=== PATIENT | female | born 1985 | race African-American/Black ===

== ENCOUNTER 2018-05-03 11:35 | Outpatient (CLI) | payer MEDICAID ==
[2018-05-03 13:09] LABS: #Eosinphils 0.1 thou/uL (0.0-0.7); #Monocytes 0.5 thou/uL (0.11-0.59); #Neutrophils 4.8 thou/uL (1.40-6.50); %Basophils 0.7 % (0.0-1.0); %Eosinophils 0.9 % (0.0-10.0); %Lymphocytes 26.7 % (21.0-51.0); %Monocytes 7.2 % (0.0-10.0); %Neutrophils 64.4 % (42.0-75.0); Hemoglobin 13.8 g/dL (12.0-16.0); Mean Corpuscular HGB CONC 34.8 g/dL (32.0-36.0); Mean Corpuscular Hemoglobin 31.2 pg (27.0-31.0); Mean Corpuscular Volume 89.6 fL (78.0-98.0); Mean Platelet Volume 7.2 fL (7.4-10.4); Platelet Count 265 thou/uL (130-400); RBC Distribution Width 11.8 % (11.5-14.5); Red Blood Cell (RBC) Count 4.42 mill/uL (4.20-5.40); White Blood Cell (WBC) Count 7.4 thou/uL (4.8-10.8)
[2018-05-03 13:27] LABS: Anion Gap 13 mmol/L (10-20); BUN (Urea Nitrogen) 5 mg/dL (7.0-18.7); Calc. Creatinine Clearance 0 mL/min (70-130); Calcium 9.5 mg/dL (7.8-10.44); Carbon Dioxide 26 mmol/L (22-29); Chloride 104 mmol/L (98-107); Estimated GFR-MDRD Greater than 90; Glucose 111 mg/dL (70-105); Sodium 139 mmol/L (136-145)
[2018-05-03 13:41] LABS: BHCG - Serum Negative (NEGATIVE); Pregs Control Background? CLEAR/WHITE (CLR/WHITE); Pregs Control Bar Appear? YES (CONTROL BAR)
== END 2018-05-03 11:36 | disposition home or self-care (01) ==
LOC: LABBT 11:35
PROVIDERS: ATTEND Specialist
DX: Z01.812 Encounter for preprocedural laboratory examination (principal); K43.9 Ventral hernia without obstruction or gangrene; K42.9 Umbilical hernia without obstruction or gangrene
CPT/HCPCS: 80048; 84703; 85025

== ENCOUNTER 2018-05-10 10:40 | Day surgery (SDC) | payer MEDICAID ==
[2018-05-03 12:00] VITALS: BMI 27.8
[2018-05-10] MEDS ORDERED: CEFAZOLIN/Water 2 GM/20 ML SYRINGE ONE (11:09)
[2018-05-10] MEDS ORDERED: Ketorolac Tromethamine 30 MG/ML VIAL ONE (11:09)
[2018-05-10] MEDS ORDERED: Midazolam HCl 2 mg/2 ml Vial ONE ×2 (11:50→12:03)
[2018-05-10] MEDS ORDERED: Fentanyl 100 MCG/2 ML VIAL ONE ×2 (12:03)
[2018-05-10] MEDS ORDERED: Bupivacaine/Epinephrine 0.25% 30 ML VIAL ONE (12:07)
[2018-05-10] MEDS ORDERED: Dexamethasone 20 MG/5 ML VIAL ONE (15:08)
[2018-05-10] MEDS ORDERED: Lidocaine 1% PF 5 ML VIAL ONE (15:08)
[2018-05-10] MEDS ORDERED: Ondansetron HCl/PF 4 MG/2 ML Vial ONE (15:08)
[2018-05-10] MEDS ORDERED: PROPOFOL 200 MG/20 ML VIAL ONE (15:08)
[2018-05-10] MEDS ORDERED: Glycopyrrolate 0.2 MG/ML 5 ML SYRINGE ONE (15:08)
--- NOTE | 2018-05-11 03:43 | OP ---
DATE OF PROCEDURE: 05/10/2018 PREOPERATIVE DIAGNOSES: Incarcerated ventral abdominal hernia, umbilical hernia. POSTOPERATIVE DIAGNOSES: Incarcerated ventral abdominal hernia, umbilical hernia. OPERATIONS PERFORMED: Repair of incarcerated ventral hernia with mesh using an 8.6-cm Ventralex mesh patch, repair of umbilical hernia. SURGEON: Andrew Crews MD ANESTHESIA: General endotracheal. INDICATIONS: The patient is a 33-year-old black female. She presents with 2 obvious separate hernia defects. She has an obvious umbilical hernia that appears to be about 1.5 cm in diameter. She also has an incarcerated ventral hernia a few centimeters superiorly. I am unable to reduce the hernia c ontents at this location. She is taken to the operating room at this time for repair of both of thes e. DESCRIPTION OF OPERATION: Informed consent was obtained, and patient was taken to the operating wher e general endotracheal anesthesia obtained with the patient in supine position. Abdomen was prepped with ChloraPrep and draped in sterile fashion. Local anesthetic was infiltrated using 0.25% Marcaine with epinephrine. An elliptical incision was created overlying the ventral hernia. This incorporat ed a ridge of fibrous scar tissue where a previous umbilical ring had been, it extended down to the s uperior aspect of the umbilicus. The thinned out skin overlying the incarcerated hernia was excised. I then dissected the fatty contents of the ventral hernia circumferentially down to its base. I mo bilized the hernia contents away from the fascial defect. I divided the herniated fatty tissue and p assed this off the field. Meticulous hemostasis was maintained. I was then able to reduce the remai virgil contents intra-abdominal. I was able to pass my finger inferiorly down to the umbilical hernia, this is easily palpable. I then mobilized the umbilical skin off the underlying fascia to fully dissect the umbilical hernia, which was clearly a separate defect. I dissected each of these hernia defects on the anterior and posterior aspects. When measured, each of these defects were a little over 1.5 cm in diameter and there was a 2-cm bridge of intact fascia b etween these two. I decided to open this fascial bridge to create one continuous defect. Preperiton eal dissection was meticulously carried out circumferentially. An 8.6-cm composite Ventralex mesh pa tch was obtained and placed in the preperitoneal space. The tails were brought up through the defect . The four tails were each secured to the fascial edges of the right and left inferior aspect and ri ght and left superior aspect of the defect. I then closed the defect somewhat by placing interrupted sutures of 0 Prolene at the inferior aspect as well as a esxwax-af-hvrae suture in the center of the defect. This led do appropriate closure of the fascia over the mesh. The umbilicus was then secured down to the fascia with a [id number]-yfijy suture of 3-0 Vicryl. The w ound was then closed in layers with 3-0 and 4-0 Monocryl. Dermabond was placed externally. A compre ssion dressing was affected using cotton balls and a Tegaderm dressing that was held in place with Ma stisol. There were no complications. The patient tolerated the procedure well and was taken to parag very room in stable condition.
== END 2018-05-10 16:50 | disposition home or self-care (01) ==
LOC: SDC 10:40
PROVIDERS: ATTEND Specialist
PROC: 0WQF0ZZ Repair Abdominal Wall, Open Approach (ICD-10-PCS; principal; 2018-05-10)
PROC: 0WUF0JZ Supplement Abdominal Wall with Synthetic Substitute, Open Approach (ICD-10-PCS; principal; 2018-05-10)
DX: K43.6 Other and unspecified ventral hernia with obstruction, without gangrene (principal); K42.9 Umbilical hernia without obstruction or gangrene
CPT/HCPCS: J0131; J1100; J1885; J2001; J2250; J2405; J2704; J3010

== ENCOUNTER 2019-02-20 08:48 | Emergency (ER) | payer MEDICAID, OTHER ==
[2019-02-20] MEDS ORDERED: Ketorolac Tromethamine 60 MG/2 ML VIAL ONE (09:15)
[2019-02-20] MEDS ORDERED: Metoclopramide HCl 10 MG TAB ONE (09:15)
== END 2019-02-20 09:58 | disposition home or self-care (01) ==
LOC: ERS 08:48
DX: K11.20 Sialoadenitis, unspecified (principal); R51 Headache
CPT/HCPCS: 96372; J1885; J8597

== ENCOUNTER 2019-02-26 08:00 | Emergency (ER) | payer OTHER | END 2019-02-26 10:25 | disposition home or self-care (01) | LOC: ERS 08:00 | DX: R51 Headache (principal); K03.81 Cracked tooth | CPT/HCPCS: 99283 ==

== ENCOUNTER 2019-03-27 22:31 | Emergency (ER) | payer OTHER, SELFPAY ==
[2019-03-27] MEDS ORDERED: Ketorolac Tromethamine 60 MG/2 ML VIAL ONE (22:51)
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
== END 2019-03-27 23:45 | disposition home or self-care (01) ==
LOC: ERS 22:31
DX: M54.2 Cervicalgia (principal); M54.9 Dorsalgia, unspecified
CPT/HCPCS: 72040; 72100; 96372; J1885

== ENCOUNTER 2019-07-21 23:53 | Emergency (ER) | payer SELFPAY | END 2019-07-22 00:18 | disposition home or self-care (01) | LOC: ERS 23:53 | DX: L30.9 Dermatitis, unspecified (principal); B37.9 Candidiasis, unspecified | CPT/HCPCS: 99282 ==